=== PATIENT | female | born 1935 | race Caucasian/White ===

== ENCOUNTER 2017-07-03 14:35 | Emergency (ER) | payer OTHER, BC ==
[~2017-07-03] VITALS: Ht 152.4 cm; Wt 66.2 kg
[2017-07-03 14:38] VITALS: BP_SYST 124
[2017-07-03 16:57] VITALS: BP_SYST 123
== END 2017-07-03 16:58 | disposition home or self-care (01) ==
LOC: SED 14:35
DX: R60.0 Localized edema (principal); Z90.49 Acquired absence of other specified parts of digestive tract; Z90.89 Acquired absence of other organs
CPT/HCPCS: 93971; 99284

== ENCOUNTER 2022-12-28 22:37 | Inpatient (IN) | payer BC ==
[~2022-12-28] VITALS: Ht 162.6 cm; Wt 68.0 kg
[2022-12-28 22:45] VITALS: BP_SYST 140
--- NOTE | 2022-12-28 22:49 | NUR ---
Patient to ER bed 03 to gown for evaluation. Side rails up. Report given to RITIKA CRUZ.
[2022-12-29] MEDS ORDERED: DIPHTH,PERTUSS(ACELL),TET VAC 0.5 ML VIAL (Tdap) I.M. ONE (01:00)
[2022-12-29] MEDS ORDERED: LIDOCAINE 1% 10 MG/ML, 20 ML MDV SUBCUT ONE (01:00)
[2022-12-29 02:52] LABS: BASOPHILS # (AUTO) 0.1 K/uL (0.0-0.2); BASOPHILS % (AUTO) 0.9 % (0.0-2.0); EOSINOPHILS # (AUTO) 0.1 K/uL (0.0-0.4); HEMATOCRIT 32.8 % (36-48); HEMOGLOBIN 11.2 g/dL (12.0-16.0); LYMPHOCYTES # (AUTO) 1.9 K/uL (1.0-5.5); LYMPHOCYTES % (AUTO) 32.5 % (20.5-51.5); MEAN CORPUSCULAR HEMOGLOBIN 36 pg (27-31); MEAN CORPUSCULAR HGB CONC 34 % (32-36); MEAN CORPUSCULAR VOLUME 105 fL (79.0-98.0); MONOCYTES # (AUTO) 0.6 K/uL (0.0-1.0); NEUTROPHILS # (AUTO) 3.3 K/uL (1.8-7.7); NEUTROPHILS % (AUTO) 54.6 % (40.0-70.0); PLATELET COUNT (AUTO) 205 K/uL (130-430); RED BLOOD CELL COUNT(AUTO) 3.11 MIL/uL (4.2-6.2); RED CELL DISTRIBUTION WIDTH 13.8 % (9.0-15.0)
[2022-12-29 02:58] LABS: ANION GAP 5 (5-15); CALCIUM 8.7 mg/dL (8.4-11.0); CHLORIDE 101 mmol/L (98-107); CREATININE 0.55 mg/dL (0.55-1.30); GLUCOSE 108 mg/dL (70-99); UREA NITROGEN, BLOOD 16 mg/dL (8-21)
--- NOTE | 2022-12-29 03:04 | NUR ---
Admit bed requested Patient will be admitted to care of Admitted to MS unit. Diagnosis Increased Fall, Knee Injury/Laceration Inpatient (Yes or No) yes Observation (Yes or No) no Orientation concerns or request close to nursing station (Yes or No) no Covid Status pending On vent or bipap no Isolation requirements no Needs a sitter no From Home (Yes or if No enter name of facility) no, [facility] Requires Dialysis (Yes or No) no Med Rec Completed (Yes of No) no meds
--- NOTE | 2022-12-29 03:15 | NUR ---
APPLIED BREATHABLE STERILE GAUZE WRAP TO RIGHT KNEE AND APPLIED R KNEE IMBOLIZER. APPLIED STERILE DRESSING TO LEFT KNEE WOUND.
--- NOTE | 2022-12-29 03:30 | NUR ---
REC REPORT FROM RITIKA CRUZ. PT RESTING IN BED COMFORTABLY. PT AWAKE AND ALERT, DAUGHTER AT BEDSIDE. EVEN AND UNLABORED RESP NOTED, NAD. SAFETY PRECAUTIONS IN PLACE AND CONNECTED TO MONITOR.
[2022-12-29] MEDS: NACL 0.9% 1,000 ML IV SCH ×2 (04:07→18:47)
--- NOTE | 2022-12-29 04:16 | NUR ---
DAUGHTER, CHAVA, WOULD LIKE TO BE CALLED AND UPDATED WHEN PATIENT IS MOVED TO FLOOR.
--- NOTE | 2022-12-29 07:11 | NUR ---
REPORT GIVEN TO RITIKA MITCHELL TO ASSUME CARE.
--- NOTE | 2022-12-29 07:34 | NUR ---
RECEIVED PT FROM RITIKA LEVY. ASSUMED CARE. PT IS AAOX4. ON R/A. NORMAL S1S2 NOTED. DENIES N/V/D/C. PT HAS RIGHT KNEE LACERATION CLOSED WITH SUTURES, COVERED WITH KERLIX AND TAPE, KNEE BRACE IN PLACE; LEFT KNEE SMALL LACERATION WITH CDI DRESSING IN PLACE. NO EDEMA NOTED. PT CAN TURN AND REPOSITION SELF WITH ASSIST. DENIES PAIN. SIDERAILS UP X2.
--- NOTE | 2022-12-29 09:06 | NUR ---
FAMILY RAI CALLED TO SPEAK WITH PT AND TO GET UPDATE. INFORMED PT IS ADMITTED AND STILL WAITING ROOM ASSIGNMENT. LEFT CALL BACK NUMBER [phone] FOR PORTABLE PHONE USE.
--- NOTE | 2022-12-29 09:57 | NUR ---
PT RECEIVING XRAY AT THIS TIME.
[2022-12-29] MEDS ORDERED: HYDROcodone/ACETAMIN 7.5-325 MG TAB PO PRN (10:00)
[2022-12-29] MEDS ORDERED: guaiFENesin/DEXTROMETHORPHAN 10 ML UDC PO PRN (10:00)
[2022-12-29] MEDS ORDERED: ONDANSETRON HCL 4 MG/2 ML VIAL IVP PRN (10:00)
[2022-12-29] MEDS ORDERED: ZOLPIDEM TARTRATE 5 MG TABLET PO PRN (10:00)
[2022-12-29] MEDS ORDERED: MORPHINE 2 MG/ML INJ. SYRINGE IVP PRN (10:00)
[2022-12-29] MEDS ORDERED: DOCUSATE SODIUM 100 MG/10 ML UDC PO PRN (10:00)
[2022-12-29 11:35] LABS: PROTHROMBIN TIME 10.5 SECS (9.5-12.5)
--- NOTE | 2022-12-29 11:43 | NUR ---
DR. CANALES AT BEDSIDE TO ASSESS PT.
[2022-12-29 11:50] LABS: THYROID STIMULATING HORMONE 5.47 uIu/mL (0.34-4.82)
--- NOTE | 2022-12-29 11:51 | NUR ---
DAUGHTER CHAVA SPOKE WITH PT, TOLD HER SHE WILL BRING CELLPHONE AND HEARING AID BATTERIES. CALL BACK NUMBER [phone]
--- NOTE | 2022-12-29 18:00 | NUR ---
Patient will be admitted to care of RITIKA ANGLIN. Admitted to TELEMETRY unit. to room Belongings list completed. Complete and up to date summary report printed. SBAR report to be given at bedside with opportunity for questions.
[2022-12-29 18:33] VITALS: BP_SYST 134
--- NOTE | 2022-12-29 18:49 | NUR ---
pt admitted @ 1805 from ER. vss. ivf infusing as ordered. pt is a&o x4. daughter at bedside. no c/o pain, on ra. fall precautions in place.
[2022-12-29 20:00] VITALS: BP_SYST 140
[2022-12-30 01:37] VITALS: BP_SYST 137
[2022-12-30] MEDS: NACL 0.9% 1,000 ML IV SCH ×2 (04:00→16:35)
[2022-12-30 07:12] LABS: BASOPHILS % (AUTO) 0.6 % (0.0-2.0); EOSINOPHILS % (AUTO) 0.8 % (0.0-4.0); HEMATOCRIT 33.8 % (36-48); HEMOGLOBIN 11.6 g/dL (12.0-16.0); LYMPHOCYTES # (AUTO) 1.1 K/uL (1.0-5.5); LYMPHOCYTES % (AUTO) 18.7 % (20.5-51.5); MEAN CORPUSCULAR HEMOGLOBIN 36 pg (27-31); MEAN CORPUSCULAR HGB CONC 34 % (32-36); MEAN CORPUSCULAR VOLUME 105 fL (79.0-98.0); MONOCYTES # (AUTO) 0.7 K/uL (0.0-1.0); MONOCYTES % (AUTO) 10.9 % (1.7-9.3); NEUTROPHILS # (AUTO) 4.2 K/uL (1.8-7.7); PLATELET COUNT (AUTO) 189 K/uL (130-430); RED BLOOD CELL COUNT(AUTO) 3.22 MIL/uL (4.2-6.2); RED CELL DISTRIBUTION WIDTH 13.8 % (9.0-15.0); WHITE BLOOD COUNT (AUTO) 6.1 K/uL (4.8-10.8)
[2022-12-30 07:55] LABS: ANION GAP 5 (5-15); CHLORIDE 101 mmol/L (98-107); CREATININE 0.63 mg/dL (0.55-1.30); GLUCOSE 111 mg/dL (70-99); UREA NITROGEN, BLOOD 11 mg/dL (8-21)
[2022-12-30 08:00] VITALS: BP_SYST 110
[2022-12-30] MEDS ORDERED: IPRATROPIUM/ALBUTEROL SULFATE 3 ML AMPUL.NEB (DUONEB) INH PRN (08:00)
[2022-12-30] MEDS ORDERED: AZITHROMYCIN 250 MG TABLET PO ONE (08:00)
[2022-12-30] MEDS: PANTOPRAZOLE SODIUM 40 MG TAB PO SCH (08:53)
[2022-12-30] MEDS ORDERED: POTASSIUM CHLORIDE 20 MEQ TAB.PRT.SR PO PRN (09:00)
[2022-12-30] MEDS: cefTRIAXone 1 GM in D5W 50 ML IV SCH (09:25)
--- NOTE | 2022-12-30 10:00 | NUR ---
orders to collect urine specimen via straight cath, patient is continent and refusing cath, provided fluids and will collect via clean catch when patient is able to void
[2022-12-30 10:34] VITALS: BP_SYST 137
--- NOTE | 2022-12-30 12:00 | NUR ---
prn colace administered, patient has not had bm x 3 days, abdomen soft
[2022-12-30 12:22] VITALS: BP_SYST 109
--- NOTE | 2022-12-30 13:00 | NUR ---
urine collected for ua and culture, taken to lab
[2022-12-30 15:37] LABS: BILIRUBIN,URINE NEGATIVE (NEGATIVE); BLOOD, URINE NEGATIVE (NEGATIVE); CLARITY/URINE CLEAR (CLEAR); COLOR,URINE YELLOW (YELLOW); GLUCOSE,URINE NEGATIVE (NEGATIVE); KETONES,URINE NEGATIVE (NEGATIVE); LEUKOCYTE ESTERASE ,URINE NEGATIVE (NEGATIVE); NITRITE, URINE NEGATIVE (NEGATIVE); PH,URINE 6.5 (5.0-8.0); PROTEIN URINE NEGATIVE (NEGATIVE)
[2022-12-30 18:12] VITALS: BP_SYST 110
--- NOTE | 2022-12-30 18:30 | NUR ---
patient c/o pain b legs, 02/17 daughter request patient not take norco at this time
[2022-12-30] MEDS: ACETAMINOPHEN 500 MG TABLET PO PRN (18:40)
--- NOTE | 2022-12-30 19:00 | NUR ---
received patient from nurse, alert and oriented, able to verbalize needs, no c/o pain or discomfort at this time Addendum: 12/30/22 at 1901 by Nii Roper RN RN opening note
[2022-12-30 20:00] VITALS: BP_SYST 113
[2022-12-31 00:10] VITALS: BP_SYST 110
[2022-12-31] MEDS: NACL 0.9% 1,000 ML IV SCH ×2 (06:03→21:00)
--- NOTE | 2022-12-31 06:42 | NUR ---
PATIENT IN BED RESTING, NO S/S OF PAIN OR DISTRESS NOTED, CONTINENT OF B&B DURING THIS SHIFT. PATIENT'S VITAL SIGNS HAVE BEEN STABLE AND NO PRN PAIN MEDICATIONS GIVEN DURING THIS SHIFT. PATIENT WITH PIV TO R FA 24G PLACED ON 12.30.22. PATIENT LACERATION TO RIGHT KNEE S/P FALL WITH DRSG DCI AND BRACE ON AT THIS TIME.
[2022-12-31 07:45] VITALS: BP_SYST 123
[2022-12-31 07:53] LABS: BASOPHILS % (AUTO) 1.2 % (0.0-2.0); EOSINOPHILS # (AUTO) 0.1 K/uL (0.0-0.4); EOSINOPHILS % (AUTO) 2.2 % (0.0-4.0); HEMATOCRIT 30.2 % (36-48); HEMOGLOBIN 10.6 g/dL (12.0-16.0); LYMPHOCYTES # (AUTO) 1.4 K/uL (1.0-5.5); LYMPHOCYTES % (AUTO) 33.2 % (20.5-51.5); MEAN CORPUSCULAR HEMOGLOBIN 37 pg (27-31); MEAN CORPUSCULAR HGB CONC 35 % (32-36); MEAN CORPUSCULAR VOLUME 105 fL (79.0-98.0); MONOCYTES # (AUTO) 0.5 K/uL (0.0-1.0); MONOCYTES % (AUTO) 13.2 % (1.7-9.3); NEUTROPHILS # (AUTO) 2.1 K/uL (1.8-7.7); PLATELET COUNT (AUTO) 177 K/uL (130-430); RED BLOOD CELL COUNT(AUTO) 2.89 MIL/uL (4.2-6.2); RED CELL DISTRIBUTION WIDTH 13.7 % (9.0-15.0); WHITE BLOOD COUNT (AUTO) 4.1 K/uL (4.8-10.8)
[2022-12-31 08:25] LABS: ANION GAP 6 (5-15); CALCIUM 7.9 mg/dL (8.4-11.0); CHLORIDE 102 mmol/L (98-107); GLUCOSE 97 mg/dL (70-99); UREA NITROGEN, BLOOD 18 mg/dL (8-21)
[2022-12-31] MEDS: PANTOPRAZOLE SODIUM 40 MG TAB PO SCH (08:45)
[2022-12-31] MEDS: AZITHROMYCIN 250 MG TABLET PO SCH (08:45)
[2022-12-31] MEDS: cefTRIAXone 1 GM in D5W 50 ML IV SCH (08:45)
--- NOTE | 2022-12-31 08:57 | NUR ---
CM discharge order for SNF, IV abx and PT noted. referral packet faxed to [facility] F# [phone]. will follow up for bed availability.
[2022-12-31 09:31] LABS: NEUTROPHILS % (AUTO) 50.2 % (40.0-70.0)
--- NOTE | 2022-12-31 10:01 | NUR ---
CM order for DCP to SNF noted. patient is agreeable to [facility]; however when family called to notify of DCP, daughter Radha refused for her mother to be discharged to [facility]. Daughter is concerned that the patient is not ready to be discharged as she still has PNA. Daughter Radha has been trying to get an update from patient MD and states that so far the doctor has not called her. Will call patient listed insurance to find contracted facilities.
--- NOTE | 2022-12-31 10:02 | NUR ---
PHYSICAL THERAPY CO-SIGN The Physical Therapy Progress Notes documented by Drafter Tool Design have been reviewed. Reviewed/Co-Signed by: Dakotah Garcia Documentation Done by:MILAD RODRIGUEZ Addendum: 12/31/22 at 1002 by Dakotah Garcia PT Amended: Links added.
[2022-12-31 11:54] VITALS: BP_SYST 118
--- NOTE | 2022-12-31 12:30 | NUR ---
referral packet faxed to [facility] [phone]; local area near daughter. CM to follow up
--- NOTE | 2022-12-31 12:54 | NUR ---
CM follow up with referral packet. sales operations coordinator not in today. will follow up in am. Will send out referral packet to more facitlities.
--- NOTE | 2022-12-31 13:06 | NUR ---
faxed referral packet to [facility] f# [phone] and [facility] f#[phone]. will follow up
--- NOTE | 2022-12-31 14:09 | NUR ---
follow up with [facility] [phone]; DON to review packet and will call if they can accept patient. all questions addressed.
--- NOTE | 2022-12-31 14:24 | NUR ---
follow up with [facility] [phone]; [facility] verifying insurance; will call back if they can accept. Refaxed referral packet to [facility]# [phone]
--- NOTE | 2022-12-31 15:33 | NUR ---
spoke with Jewels at [facility]. Jewels provided pt insurance info for and Main #.Faxed clinicals to dept [place] [facility] [place] supplemental policy F# . will follow up for auth for SNF and transport.
--- NOTE | 2022-12-31 15:51 | NUR ---
followed up with [facility] [phone]. Financial business office at [facility] is having a hard time running pt insurance. This CM gave them pt Medicare Advantage policy # for [facility] Supplemental policy. #[id number]. [facility] to try again. will call back if they can accept.
--- NOTE | 2022-12-31 17:24 | NUR ---
patient had an uneventful day, tolerated meds and diet well. Discharge order placed for SNF. Patient awaits authorizations for [facility], see CM notes. Will continue to monitor closely.
[2022-12-31 17:32] VITALS: BP_SYST 120
--- NOTE | 2022-12-31 18:00 | NUR ---
call placed to Dr Penn to make aware of pending authorization SNF placement, awaiting response.
[2022-12-31 20:00] VITALS: BP_SYST 120
[2023-01-01] MEDS: NACL 0.9% 1,000 ML IV SCH ×2 (04:21→17:52)
[2023-01-01 04:35] VITALS: BP_SYST 134
[2023-01-01 06:30] LABS: BASOPHILS % (AUTO) 0.7 % (0.0-2.0); EOSINOPHILS # (AUTO) 0.1 K/uL (0.0-0.4); EOSINOPHILS % (AUTO) 1.3 % (0.0-4.0); HEMATOCRIT 33.6 % (36-48); HEMOGLOBIN 11.6 g/dL (12.0-16.0); LYMPHOCYTES # (AUTO) 1.2 K/uL (1.0-5.5); LYMPHOCYTES % (AUTO) 21.8 % (20.5-51.5); MEAN CORPUSCULAR HEMOGLOBIN 36 pg (27-31); MEAN CORPUSCULAR HGB CONC 35 % (32-36); MEAN CORPUSCULAR VOLUME 105 fL (79.0-98.0); MONOCYTES # (AUTO) 0.7 K/uL (0.0-1.0); MONOCYTES % (AUTO) 11.5 % (1.7-9.3); NEUTROPHILS # (AUTO) 3.7 K/uL (1.8-7.7); NEUTROPHILS % (AUTO) 64.7 % (40.0-70.0); PLATELET COUNT (AUTO) 173 K/uL (130-430); RED BLOOD CELL COUNT(AUTO) 3.19 MIL/uL (4.2-6.2); RED CELL DISTRIBUTION WIDTH 13.3 % (9.0-15.0); WHITE BLOOD COUNT (AUTO) 5.7 K/uL (4.8-10.8)
[2023-01-01 07:22] LABS: ANION GAP 6 (5-15); CHLORIDE 101 mmol/L (98-107); CREATININE 0.56 mg/dL (0.55-1.30); GLUCOSE 116 mg/dL (70-99); UREA NITROGEN, BLOOD 11 mg/dL (8-21)
[2023-01-01 08:02] VITALS: BP_SYST 131
[2023-01-01] MEDS: PANTOPRAZOLE SODIUM 40 MG TAB PO SCH (09:06)
[2023-01-01] MEDS: AZITHROMYCIN 250 MG TABLET PO SCH (09:06)
[2023-01-01] MEDS: cefTRIAXone 1 GM in D5W 50 ML IV SCH (09:07)
[2023-01-01 13:13] VITALS: BP_SYST 99
--- NOTE | 2023-01-01 15:56 | NUR ---
PHYSICAL THERAPY CO-SIGN The Physical Therapy Progress Notes documented by Salary And Wage Administrator have been reviewed. Reviewed/Co-Signed by: Josef Banuelos Documentation Done by:MILAD RODRIGUEZ Addendum: 01/01/23 at 1557 by Josef Banuelos PT Amended: Links added.
[2023-01-01 16:20] VITALS: BP_SYST 131
--- NOTE | 2023-01-01 18:40 | NUR ---
PATIENT IN GOOD SPIRIT, NO C/O PAIN, NO APPARENT DISTRESS. PATIENT STILL AWAITS SNF PLACEMENT. SAFETY PRECAUTIONS MAINTAINED THIS SHIFT. PATIENT CONTINUES ON IVF FOR HYDRATION. NO COMPLAINTS VOICED. CONTINUE WITH PLAN OF CARE.
[2023-01-01 20:00] VITALS: BP_SYST 144
--- NOTE | 2023-01-01 21:45 | NUR ---
PATIENT DAUGHTER, CHAVA, CALLED VOICED CONCERNS ABOUT PATIENT C/O PAIN TO HER RIGHT GREAT TOE. DAUGHTER IS CONCERNED THAT PATIENT COULD HAVE A BLOOD CLOT IN HER RIGHT LEG. PATIENT DAUGHTER, CHAVA, ALSO STATED THAT HER OTHER SISTER WAS REQUESTING THAT PATIENT BE GIVEN SOME TYPE OF ANTI-INFLAMMORTY PRIOR TO PHYSICAL THERAPY.
[2023-01-02] VITALS: BP_SYST 148
[2023-01-02] MEDS: NACL 0.9% 1,000 ML IV SCH ×2 (06:10→18:48)
[2023-01-02 06:50] LABS: EOSINOPHILS % (AUTO) 2.5 % (0.0-4.0); HEMATOCRIT 34.3 % (36-48); LYMPHOCYTES # (AUTO) 1.2 K/uL (1.0-5.5); LYMPHOCYTES % (AUTO) 29.9 % (20.5-51.5); MEAN CORPUSCULAR HEMOGLOBIN 37 pg (27-31); MEAN CORPUSCULAR HGB CONC 35 % (32-36); MEAN CORPUSCULAR VOLUME 105 fL (79.0-98.0); MONOCYTES # (AUTO) 0.5 K/uL (0.0-1.0); MONOCYTES % (AUTO) 12.8 % (1.7-9.3); PLATELET COUNT (AUTO) 183 K/uL (130-430); RED BLOOD CELL COUNT(AUTO) 3.27 MIL/uL (4.2-6.2); RED CELL DISTRIBUTION WIDTH 13.4 % (9.0-15.0); WHITE BLOOD COUNT (AUTO) 4.1 K/uL (4.8-10.8)
[2023-01-02 07:42] LABS: ANION GAP 7 (5-15); CALCIUM 8.2 mg/dL (8.4-11.0); CHLORIDE 102 mmol/L (98-107); CREATININE 0.63 mg/dL (0.55-1.30); GLUCOSE 96 mg/dL (70-99); UREA NITROGEN, BLOOD 10 mg/dL (8-21)
[2023-01-02 07:45] LABS: BASOPHILS % (AUTO) 0.3 % (0.0-2.0); NEUTROPHILS % (AUTO) 54.5 % (40.0-70.0)
[2023-01-02 07:46] LABS: EOSINOPHILS # (AUTO) 0.1 K/uL (0.0-0.4)
[2023-01-02 07:47] LABS: NEUTROPHILS # (AUTO) 2.3 K/uL (1.8-7.7)
[2023-01-02 08:22] VITALS: BP_SYST 129
[2023-01-02] MEDS: PANTOPRAZOLE SODIUM 40 MG TAB PO SCH (08:57)
[2023-01-02] MEDS: DOCUSATE SODIUM 100 MG CAPSULE PO PRN (08:57)
[2023-01-02] MEDS: AZITHROMYCIN 250 MG TABLET PO SCH (08:57)
[2023-01-02] MEDS: cefTRIAXone 1 GM in D5W 50 ML IV SCH (08:57)
[2023-01-02 10:52] VITALS: BP_SYST 126
[2023-01-02 10:55] VITALS: BP_SYST 126
--- NOTE | 2023-01-02 13:57 | NUR ---
faxed referral packet to [facility] per pt daughter Radha request. Followed up with a phone call ; left VM w/ this CM call back #for event coordinator. Will follow up
--- NOTE | 2023-01-02 14:50 | NUR ---
Natacha at [facility] called back and said that she had not received pt referral. fax # and direct line#s not correct. Natacha CM # [phone]. Her direct fax # [phone]. Number to nurses station to call report [phone]. numbers updated on this facility list. Natacha to call back after she receives packet. will follow up
--- NOTE | 2023-01-02 15:07 | NUR ---
RN MEDICALLY CLEARED PATIENT FOR PT, HOWEVER PATIENT REFUSED D/T PATIENT FEELING TIRED AND WANTED TO NAP.
[2023-01-02 15:42] VITALS: BP_SYST 113
--- NOTE | 2023-01-02 20:00 | NUR ---
REPORT RECEIVED FROM OUTGOING NURSE
[2023-01-02 20:42] VITALS: BP_SYST 135
--- NOTE | 2023-01-03 00:12 | NUR ---
pt resting in bed, no distress noted
[2023-01-03 00:42] VITALS: BP_SYST 123; BP_SYST 129
[2023-01-03 07:07] LABS: BASOPHILS % (AUTO) 0.9 % (0.0-2.0); EOSINOPHILS # (AUTO) 0.1 K/uL (0.0-0.4); EOSINOPHILS % (AUTO) 2.3 % (0.0-4.0); HEMATOCRIT 33.6 % (36-48); HEMOGLOBIN 11.7 g/dL (12.0-16.0); LYMPHOCYTES # (AUTO) 1.1 K/uL (1.0-5.5); LYMPHOCYTES % (AUTO) 21.4 % (20.5-51.5); MEAN CORPUSCULAR HEMOGLOBIN 36 pg (27-31); MEAN CORPUSCULAR HGB CONC 35 % (32-36); MEAN CORPUSCULAR VOLUME 104 fL (79.0-98.0); MONOCYTES # (AUTO) 0.5 K/uL (0.0-1.0); MONOCYTES % (AUTO) 10.6 % (1.7-9.3); NEUTROPHILS # (AUTO) 3.2 K/uL (1.8-7.7); NEUTROPHILS % (AUTO) 64.8 % (40.0-70.0); PLATELET COUNT (AUTO) 183 K/uL (130-430); RED BLOOD CELL COUNT(AUTO) 3.22 MIL/uL (4.2-6.2); RED CELL DISTRIBUTION WIDTH 13.7 % (9.0-15.0); WHITE BLOOD COUNT (AUTO) 4.9 K/uL (4.8-10.8)
[2023-01-03 07:23] LABS: ANION GAP 9 (5-15); CALCIUM 8.2 mg/dL (8.4-11.0); CHLORIDE 101 mmol/L (98-107); CREATININE 0.58 mg/dL (0.55-1.30); GLUCOSE 103 mg/dL (70-99); UREA NITROGEN, BLOOD 11 mg/dL (8-21)
[2023-01-03 08:02] VITALS: BP_SYST 129
[2023-01-03] MEDS ORDERED: DOCUSATE SODIUM 100 MG CAPSULE PO PRN (08:15)
[2023-01-03] MEDS ORDERED: POTASSIUM CHLORIDE 20 MEQ TAB.PRT.SR PO PRN (08:15)
[2023-01-03] MEDS ORDERED: ACETAMINOPHEN 325 MG TABLET PO PRN (08:15)
[2023-01-03] MEDS ORDERED: LORazepam 2 MG/ML VIAL IVP PRN (08:15)
[2023-01-03] MEDS ORDERED: ZOLPIDEM TARTRATE 5 MG TABLET PO PRN (08:15)
[2023-01-03] MEDS ORDERED: MUPIROCIN 2% TOPICAL OINTMENT 22 GM NS PRN (08:15)
[2023-01-03] MEDS ORDERED: MAGNESIUM SULFATE 50 ML IV PRN (08:15)
[2023-01-03] MEDS: PANTOPRAZOLE SODIUM 40 MG TAB PO SCH (08:42)
[2023-01-03] MEDS: AZITHROMYCIN 250 MG TABLET PO SCH (08:42)
[2023-01-03] MEDS: NACL 0.9% 1,000 ML IV SCH ×2 (08:43→21:56)
[2023-01-03] MEDS: cefTRIAXone 1 GM in D5W 50 ML IV SCH (08:43)
[2023-01-03 12:01] VITALS: BP_SYST 112
--- NOTE | 2023-01-03 12:08 | NUR ---
PT notes faxed to Samuel at [facility] F# [phone] . [employer]/ [employer] called [phone]. Patient only insurance that is active is her [place] [employer] Medicare Advantage [employer] Medicare Preferred PPO. ID # [id number]. Samuel at [facility] and Jewels at [facility] updated.
[2023-01-03] MEDS: ENOXAPARIN SODIUM 30 MG/0.3 ML SYRINGE SUBCUT SCH (12:23)
--- NOTE | 2023-01-03 14:43 | NUR ---
Fax # for [employer] authorization sent to Samuel at [facility]. Samuel states they will attempt to get authorization.
--- NOTE | 2023-01-03 15:55 | NUR ---
PHYSICAL THERAPY CO-SIGN The Physical Therapy Progress Notes documented by Linotypist have been reviewed. Reviewed/Co-Signed by: Dakotah Garcia Documentation Done by:MILAD RODRIGUEZ Addendum: 01/03/23 at 1555 by Dakotah Garcia PT Amended: Links added.
--- NOTE | 2023-01-03 16:08 | NUR ---
Urine culture results faxed to Samuel at [facility] f# [phone]
[2023-01-03 16:52] VITALS: BP_SYST 130
[2023-01-03 21:50] VITALS: BP_SYST 110
[2023-01-03 21:57] VITALS: BP_SYST 143
--- NOTE | 2023-01-04 03:40 | NUR ---
pt resting in bed, no acute distress noted. good urinary outputs x 3
--- NOTE | 2023-01-04 07:43 | NUR ---
no acute distress overnight. endorsed care to incoming RN
[2023-01-04 08:08] VITALS: BP_SYST 107
[2023-01-04] MEDS: AZITHROMYCIN 250 MG TABLET PO SCH (09:04)
[2023-01-04] MEDS: ENOXAPARIN SODIUM 30 MG/0.3 ML SYRINGE SUBCUT SCH (09:04)
[2023-01-04] MEDS: DOCUSATE SODIUM 100 MG CAPSULE PO PRN (09:04)
[2023-01-04] MEDS: PANTOPRAZOLE SODIUM 40 MG TAB PO SCH (09:04)
[2023-01-04] MEDS: cefTRIAXone 1 GM in D5W 50 ML IV SCH (09:05)
[2023-01-04] MEDS: NACL 0.9% 1,000 ML IV SCH ×2 (09:05→21:30)
[2023-01-04 12:00] VITALS: BP_SYST 110
[2023-01-04 16:00] VITALS: BP_SYST 108
--- NOTE | 2023-01-04 19:51 | NUR ---
ASSUMED CARE OF PT, NO ACUTE DISTRESS NOTED
[2023-01-04 20:58] VITALS: BP_SYST 128
[2023-01-05 02:46] VITALS: BP_SYST 129
--- NOTE | 2023-01-05 07:08 | NUR ---
daughter concerned for STITCHES to rt [place], requests for md to order removal of sticthe prior to pt discharge.
[2023-01-05 08:59] VITALS: BP_SYST 128
[2023-01-05] MEDS: PANTOPRAZOLE SODIUM 40 MG TAB PO SCH (09:32)
[2023-01-05] MEDS: cefTRIAXone 1 GM in D5W 50 ML IV SCH (09:33)
[2023-01-05] MEDS: ENOXAPARIN SODIUM 30 MG/0.3 ML SYRINGE SUBCUT SCH (09:33)
[2023-01-05 12:44] VITALS: BP_SYST 127
[2023-01-05 16:00] VITALS: BP_SYST 129
--- NOTE | 2023-01-05 18:48 | NUR ---
PATIENT RESTING QUIETLY IN BED. NO APPARENT DISTRESS NOTED. STILL AWAITS PLACEMENT TO SNF. DAUGHTER VISITED TODAY EXPRESSING HER CONCERNS ABOUT HER MOTHER STITCHES, WANTING TO KNOW WHEN THEY WILL BE REMOVED. REASSURED HER THAT THEY WILL BE REMOVED AT THE APPROPRIATE TIME. SAFETY PRECAUTIONS MAINTAINED, CALL LIGHT WITH IN REACH. CONTINUE WITH POC.
[2023-01-05 19:00] VITALS: BP_SYST 140
--- NOTE | 2023-01-05 19:15 | NUR ---
change of shift.pt.presents quiescent affect;calm,resting.pt.presents iv access intact;patent.general status stable. respiratory status stable unlabored@room air.no c/o pain,nausea.call light/telephone w/in access of the pt.
[2023-01-05 20:00] VITALS: BP_SYST 140
--- NOTE | 2023-01-05 20:00 | NUR ---
pt.assessed.v/s assessed values wnl.no c/o pain,nausea.pt.apprised that snacks/beverages are available w/in the shift. no requests posited@this hour.pt.assessed for cleanliness pt.repositioned.call light/telephone placed w/in access of the pt.
--- NOTE | 2023-01-05 22:00 | NUR ---
pt.assessed.pt.quiescent.per flacc pain mgx pt.absent facial grimaces/body posturing.pt.assessed for cleanliness pt.repositioned.call light/telephone placed w/in access of the pt.
[2023-01-05] MEDS: NACL 0.9% 1,000 ML IV SCH (22:30)
--- NOTE | 2023-01-06 | NUR ---
pt.assessed.v/s assessed values wnl.pt.requested assistance w bryanna chester;assembly manager assisted pt.no c/o pain,nausea. no requests posited@this hour.pt.repositioned.call light/telephone placed w/in access of the pt.
--- NOTE | 2023-01-06 02:00 | NUR ---
pt assESSED.pt.quiescent.per flacc pain mgx pt.absent facial grimaces/BODY PoSTUriNG.PT.ASSessed for cleanliness PT.REpositioned.call light/telephone placed w/in access of the pt.
--- NOTE | 2023-01-06 04:00 | NUR ---
pt.assessed.pt.quiescent.per flacc pain mgx pt.absent facial grimaces/body posturing.o2-sat%=96%.pt.assessed for cleanliness pt.repositioned.call light/telephone placed w/in access of the pt.
[2023-01-06 04:17] VITALS: BP_SYST 135
--- NOTE | 2023-01-06 06:20 | NUR ---
pt.assessed.pt.quiescent.per flacc pain mgx pt.absent facial grimaces/body posturing.pt.assessed for cleanliness pt.repositioned.call light/telephone placed w/in access of the pt.
[2023-01-06 07:27] VITALS: BP_SYST 131
[2023-01-06] MEDS: ENOXAPARIN SODIUM 30 MG/0.3 ML SYRINGE SUBCUT SCH (08:48)
[2023-01-06] MEDS: PANTOPRAZOLE SODIUM 40 MG TAB PO SCH (08:48)
[2023-01-06] MEDS: NACL 0.9% 1,000 ML IV SCH (11:00)
--- NOTE | 2023-01-06 11:08 | NUR ---
Followed up with Mabel at [facility] for updates on insurance authorization. Mabel to call admissions and follow up. PT reports that patient last ambulated /FWW 20ft. Sit to stand exercises done; but patient has poor standing balance. Patient with h/o multiple falls prior to admission. Mabel at [facility] to call this CM with updates; return phone # provided.
[2023-01-06 12:00] VITALS: BP_SYST 133
[2023-01-06] MEDS ORDERED: POTASSIUM CHLORIDE 20 MEQ TAB.PRT.SR PO ONE (12:00)
[2023-01-06] MEDS: ACETAMINOPHEN 500 MG TABLET PO PRN (12:25)
[2023-01-06 13:16] LABS: ANION GAP 12 (5-15); CALCIUM 8.9 mg/dL (8.4-11.0); CHLORIDE 96 mmol/L (98-107); CREATININE 0.72 mg/dL (0.55-1.30); GLUCOSE 127 mg/dL (70-99); UREA NITROGEN, BLOOD 19 mg/dL (8-21)
--- NOTE | 2023-01-06 14:07 | NUR ---
phone call follow up for Mabel at [facility] [phone]. Mabel unavailable. left message with staff for her to return this CM call regarding authorization.
--- NOTE | 2023-01-06 14:47 | NUR ---
spoke with daughter Radha [phone] regarding updates and authorization disposition. [facility] still unable to obtain auth. Radha made aware of MD order for CM to DC home with HH for PT if insurance does not auth for SNF. Radha stated that she spoke with [facility] and that they told her they will not take her back unless she has had rehab/ SNF services as she is a high fall risk. Option of discharging patient back to [facility] with HH and caregiver discussed. Daughter states that the family cannot afford caregiver services and reitierates that [facility] told her that it is their rule that the resident cannot return back unless she has had SNF or rehab services. Daughter received a recommendation to send her mother's information to [facility]. Will call [facility], follow up with [facility] and fax referral to [facility]. Daughter made aware that the issue is not the facility but the insurance. Daughter still insists on this CM to send [facility] a referral.
--- NOTE | 2023-01-06 14:59 | NUR ---
unable to reach Elsie at [facility] [phone]. [facility] RN to call back. will fax referral to [facility] per daughter choice.
--- NOTE | 2023-01-06 15:15 | NUR ---
[facility] referral packet faxed to [facility] [phone] per patient daughter request. will follow up.
--- NOTE | 2023-01-06 16:10 | NUR ---
PHYSICAL THERAPY CO-SIGN The Physical Therapy Progress Notes documented by Pharmacy General Manager have been reviewed. Reviewed/Co-Signed by: Dakotah Garcia Documentation Done by:MILAD RODRIGUEZ Addendum: 01/06/23 at 1610 by Dakotah Garcia PT Amended: Links added.
[2023-01-06 16:41] VITALS: BP_SYST 132
--- NOTE | 2023-01-06 18:21 | NUR ---
PATIENT RESTING QUIETLY, REQUESTED FOR PAIN MED ONCE TODAY AFTER SEEN BY PT. PT STILL AWAITS SNF PLACEMENT. SAFETY MEASURES MAINTAINED THIS SHIFT. CONTINUE WITH POC.
[2023-01-06 19:00] VITALS: BP_SYST 132
[2023-01-07 00:07] VITALS: BP_SYST 129
[2023-01-07] MEDS: NACL 0.9% 1,000 ML IV SCH ×2 (00:46→12:00)
[2023-01-07 04:00] VITALS: BP_SYST 129
[2023-01-07 08:15] VITALS: BP_SYST 127
--- NOTE | 2023-01-07 09:08 | NUR ---
updated clinicals faxed to Samuel at [facility] f# [phone]. Samuel will work with Mabel in the business office to try to get auth today.
[2023-01-07] MEDS: ENOXAPARIN SODIUM 30 MG/0.3 ML SYRINGE SUBCUT SCH (09:47)
[2023-01-07] MEDS: PANTOPRAZOLE SODIUM 40 MG TAB PO SCH (09:47)
[2023-01-07 11:10] VITALS: BP_SYST 128
--- NOTE | 2023-01-07 11:43 | NUR ---
Spoke with Samuel at [facility] [phone]. Samuel states they can accept the patient . Samuel advised this CM that the hospital has to initiate authorization. This CM faxed request for authorization to f# [phone]. This CM called pt insurance [employer] [phone] and spoke to Karen to confirm fax # and see if they received fax. Karen checked member ID # and stated that [facility] had been given auth that started 01/01 and ended on 01/04/23. Karen informed that this CM had been in touch with [facility]
--- NOTE | 2023-01-07 11:49 | NUR ---
jeremiah with Samuel at [facility] [phone]. Samuel states they can accept the patient . Samuel advised this CM that the hospital has to initiate authorization. This CM faxed request for authorization to f# [phone]. This CM called pt insurance [employer] [phone] and spoke to Karen to confirm fax # and see if they received fax. Karen checked member ID # and stated that [facility] had been given auth that started 01/01 and ended on 01/04/23. Karen informed that this CM had been in touch with Jewels at [facility] on 01/03/23 and stated that they were not able to get through to the patient insurance. [facility] did not mention that they had initiated auth or recieved approval for the facility. will call Karen at 2pm to check on auth status.
--- NOTE | 2023-01-07 12:02 | NUR ---
Spoke with Jewels at [facility] to discuss facility having initiated auth for SNF. [facility] denies anyone their initiating auth. [facility] does however state that they would be willing to accept the patient pending auth.
--- NOTE | 2023-01-07 12:21 | NUR ---
Followed up with [facility] [phone]; spoke with Shila who stated that they cannot accept the patient; they are full. Attempt to call daughter to let her know that her facility of choice cannot accept. left VM with choices of [facility] whom will accept. Spoke with Kiley from [facility] dept [phone] who is working on authorization for [facility] [place]. Kiley states that CM dept will receive a fax with authorization ; pending.
--- NOTE | 2023-01-07 14:30 | NUR ---
LATE ENTRY DUE TO CARE. 0800 PT STABLE . DENIES ANY PAIN OR THOER DISCOMFORT. NOT IN ACUTE DISTRESS. 1000- DUE MEDS GIVEN ORDERED. 1130- REPORT GIVEN TO RITIKA ADLER
--- NOTE | 2023-01-07 14:40 | NUR ---
spoke with pt daughter Radha ; daughter spoke with Elsie at [facility] regarding any criteria that the facility would take the patient back if she didnt go to a SNF or rehab facility first. Radha was told that "[facility] would take her mother back without going to a SNF first but it would be at a higher level; level one" Pt was at a level zero; independent. Level one would mean a daytime caregiver to help with ADLs and escort with ambulation for fall prevention. It was quoted to Radha that this would cost $450/ month more and would be out of pocket expense. Radha told [facility] rep that the family cannot afford the extra cost. Radha is agreeable to [facility]. Pending auth for [facility] and [facility]. Kelley from [facility] called back and said they may consider accepting this patient pending insurance. Pat given patient Medicare Advantage Plan ID# ; she will try to see if the patient has any medicare benefits. Kelley will call dept back with decision.
--- NOTE | 2023-01-07 14:46 | NUR ---
Called patient nurse to see if she has worked with PT; no notes today. nurse to call CM with updates. Pt daughter Radha is concerned that the patient still has sutures to her knee in . Will reach out to patient nurse to address this matter with the attending MD.
[2023-01-07 15:25] VITALS: BP_SYST 112
--- NOTE | 2023-01-07 15:37 | NUR ---
PHYSICAL THERAPY CO-SIGN The Physical Therapy Progress Notes documented by Step Down Specialist have been reviewed. Reviewed/Co-Signed by: Dakotah Garcia Documentation Done by:MILAD RODRIGUEZ Addendum: 01/07/23 at 1537 by Dakotah Garcia PT Amended: Links added.
[2023-01-07] MEDS: ACETAMINOPHEN 500 MG TABLET PO PRN (21:52)
[2023-01-08] VITALS (7 sets, daily range): BP systolic 116–141
[2023-01-08] MEDS: NACL 0.9% 1,000 ML IV SCH ×2 (02:30→13:00)
--- NOTE | 2023-01-08 07:26 | NUR ---
CLOSING NOTES PT WAS ON AND OFF SLEEPING.BED IN LOW POSITION WITH BREAK SET. PT APPEAR TO BE RESTING
--- NOTE | 2023-01-08 08:09 | NUR ---
Dietitian Recommendations * Continue regular diet * Adhere to pt food preferences * Snacks between meals; JIMMY entered in computrition GS, MPH, RD Please refer to RD Assessment for further details. Thanks! Addendum: 01/08/23 at [address] Amended: Links added.
--- NOTE | 2023-01-08 08:19 | NUR ---
OPENING NOTES: RECEIVED BEDSIDE SBAR FROM PM SHIFT NURSE, PATIENT IS STABLE NO S/S OF ANY DISTRESS AT THIS TIME, PATIENT IS RESTING IN BED WITH EYES OPENED. ASSISTED LABORER HOISTING IN PUTTING PT ON BEDPAN. BREATHING IS EVEN AND UNLABORED ON RA. ALL NEEDS MET AT THIS TIME, SAFETY CHECKS MADE AND CALL LIGHT WITHIN REACH.
--- NOTE | 2023-01-08 08:35 | NUR ---
OIL EXPELLER: MOLLY TERRELL CASE MGT INFORMED ME THAT SHE IT ATTEMPTING TO GET PT TRANSFERRED TO [facility] AND IS WAITING FOR AUTHORIZATION.
--- NOTE | 2023-01-08 08:47 | NUR ---
Zofia at [employer] [facility] called and requested more info. Faxed updated clinicals to f# [phone]. will follow up. Kelley at [facility] called back and could not get member information. Pat called patient son to call pt member services to update her information. awaiting authorization for [facility].
[2023-01-08] MEDS: PANTOPRAZOLE SODIUM 40 MG TAB PO SCH (10:11)
[2023-01-08] MEDS: ENOXAPARIN SODIUM 30 MG/0.3 ML SYRINGE SUBCUT SCH (10:11)
--- NOTE | 2023-01-08 13:49 | NUR ---
Followed up with Isabella at [facility] ( formerly [employer]) [phone]. Isabella states that they still have not received this mornings fax; they are backed up. Itemized list of needed clinicals discussed. They need 48 hours of nurse notes as well. CM to refax entire updated packet to F# [phone].
--- NOTE | 2023-01-08 16:00 | NUR ---
PHYSICAL THERAPY CO-SIGN The Physical Therapy Progress Notes documented by Dry Mixer have been reviewed. Reviewed/Co-Signed by: Dakotah Garcia Documentation Done by:MILAD RODRIGUEZ Addendum: 01/08/23 at 1600 by Dakotah Garcia PT Amended: Links added.
--- NOTE | 2023-01-08 16:20 | NUR ---
Daughter Radha updated on insurance auth status; still waiting for auth. will check back tomorrow morning.
--- NOTE | 2023-01-08 19:21 | NUR ---
CLOSING NOTES: PT IN BED WATCHING TV. BREATHING IS EVEN AND UNLABORED ON RA. NO S/S OF DISTRESS OR PAIN REPORTED. ALL NEEDS MET AT THIS TIME, SAFETY CHECKS MADE AND CALL LIGHT WITHIN REACH. WILL ENDORSE TO NIGHT NURSE.
[2023-01-09] VITALS: BP_SYST 123
[2023-01-09] MEDS: NACL 0.9% 1,000 ML IV SCH ×2 (02:53→13:16)
--- NOTE | 2023-01-09 06:19 | NUR ---
Closing notes pt in bed watching TV and occasionally sleeping on and off. No distress noted. Bed in low position with all safety precautions in place. pt is comfortably and appear to be resting.
[2023-01-09 08:00] VITALS: BP_SYST 135
--- NOTE | 2023-01-09 08:20 | NUR ---
follow up with patient insurance [employer] [facility] regarding auth. Cryptanalyst states that all clinical documents faxed yesterday were received and that auth is pending. Rep states a decision should be reached today.
--- NOTE | 2023-01-09 08:29 | NUR ---
OPENING NOTES: PT IN BED WITH EYES CLOSED. BREATHING EVEN AND UNLABORED ON RA. NO S/S OF DISTRESS OR PAIN REPORTED. ALL NEEDS MET AT THIS TIME, SAFETY CHECKS MADE AND CALL LIGHT WITHIN REACH.
--- NOTE | 2023-01-09 09:08 | NUR ---
Authorization approved and received for [facility]. Samuel at [facility] faxed auth# [id number] to fax# [phone]. Samuel to call back with a bed. CHIRAG to work on transportation now.
[2023-01-09] MEDS: PANTOPRAZOLE SODIUM 40 MG TAB PO SCH (09:24)
[2023-01-09] MEDS: ENOXAPARIN SODIUM 30 MG/0.3 ML SYRINGE SUBCUT SCH (09:25)
--- NOTE | 2023-01-09 09:47 | NUR ---
Patient RITIKA Dickson notified about pending discharge to [facility]. RITIKA Dickson to collect a STAT Rapid Covid test.. transportation with Medic[facility] placed on will call.
--- NOTE | 2023-01-09 11:31 | NUR ---
negative Covid results for rapid test today faxed to Samuel at [facility] F# [phone]. Samuel to call back with a bed. Notified patient daughter Radha about pending discharge.
[2023-01-09 12:04] VITALS: BP_SYST 131
--- NOTE | 2023-01-09 12:15 | NUR ---
Spoke with Samuel at [facility] regarding KAVON and to let his business employment specialist Mabel know that if they need an KAVON that they have to call the insurance and initiate it. Will follow up.
--- NOTE | 2023-01-09 13:07 | NUR ---
Samuel from [facility] called back stating that he cannot give the patient a bed because they are not contracted with [facility]. They would need a hard copy of an KAVON.
--- NOTE | 2023-01-09 14:22 | NUR ---
attempt to follow up with Mabel business practices officer at [facility] [phone] regarding initiation on KAVON with patient insurance. Mabel unavailable. left ms with staff for her to call this CM back. return phone # provided.
--- NOTE | 2023-01-09 14:37 | NUR ---
case mgt: Nadya informed me that the pt dc is delayed because the facility or business office of [facility] is not contracted with the pt's insurance so [facility] needs to do a letter of agreement with the pt's health insurance. pt will not be dc today due to insurance delay. 01/09/23.
[2023-01-09 16:00] VITALS: BP_SYST 130
--- NOTE | 2023-01-09 18:23 | NUR ---
CLOSING NOTES: PT IN BED EATING DINNER. NO S/S OF DISTRESS OR PAIN REPORTED. BREATHING IS EVEN AND UNLABORED ON RA. IV IS PATENT AND FLUIDS ARE RUNNING. ALL NEEDS MET AT THIS TIME, SAFETY CHECKS MADE AND CALL LIGHT WITHIN REACH. WILL ENDORSE TO NIGHT NURSE.
[2023-01-10] VITALS (7 sets, daily range): BP systolic 105–149
--- NOTE | 2023-01-10 07:52 | NUR ---
CLOSING NOTES PT RESTING WITH FALL PRECASTION IN PLACE
--- NOTE | 2023-01-10 08:05 | NUR ---
Spoke with [facility] member services [phone] to find a list of patient insurance contracted facilities. List was faxed to this CM. However; [facility] was on that list and the business systems developer stated that [facility] is not contracted with [employer] [employer] [facility]. Called Rylie at [facility] regarding a list of contracted facilities. Rylie states that [facility] initiated a request for a letter of approval yesterday and it was faxed to the facility. This CM requested for a copy of that letter of approval sent to [facility] for review. will follow up with [facility]
[2023-01-10] MEDS: PANTOPRAZOLE SODIUM 40 MG TAB PO SCH (09:43)
[2023-01-10] MEDS: ENOXAPARIN SODIUM 30 MG/0.3 ML SYRINGE SUBCUT SCH (09:43)
--- NOTE | 2023-01-10 11:39 | NUR ---
Follow up with Samuel at [facility] [phone]. Samuel contacted his church administrator to ask Mabel in business office to expedite the KAVON request for this patient. Will follow up
--- NOTE | 2023-01-10 12:00 | NUR ---
updated daughter Radha [phone] on insurance status; Letter of agreement between [facility] and [facility] still pending. Daughter encouraged to update her siblings as she has been the one managing patient needs and her brother Kirby is "essentially uninvolved" per Radha. Spoke with Radha about her sister Sheyla Garcia from [place] who called department wanting to know why patient is still here. explained to Radha how one spokesperson for the patient is the preferred policy for privacy purposes. Radha agreed to update her sister Sheyla about discharge disposition today.
--- NOTE | 2023-01-10 15:36 | NUR ---
PHYSICAL THERAPY CO-SIGN The Physical Therapy Progress Notes documented by Yoghurt Maker have been reviewed. Reviewed/Co-Signed by: Josef Banuelos Documentation Done by:MILAD RODRIGUEZ Addendum: 01/10/23 at 1536 by Josef Banuelos PT Amended: Links added.
--- NOTE | 2023-01-10 18:01 | NUR ---
Miss Felipe has been assessed as indicated. She has been noted to be both pleasant and cooperative. She continued to deny pain. She was eagerly looking forward to being DC today. However the authorization process has not been completed. She will not DC today. She is disappointed but compliant. She has worked with PT today and spoken with [facility] members via the telephone. She is resting quietly at this time
--- NOTE | 2023-01-10 19:30 | NUR ---
Handoff has been given to Trell
--- NOTE | 2023-01-10 20:00 | NUR ---
Report received from day shift RN for continuity of care. Patient in stable condition.
--- NOTE | 2023-01-10 20:08 | NUR ---
Report received from day shift RN for continuity of care. Patient stable. No distress noted.
[2023-01-10] MEDS: NACL 0.9% 1,000 ML IV SCH (21:17)
[2023-01-11 00:49] VITALS: BP_SYST 140
[2023-01-11] MEDS: NACL 0.9% 1,000 ML IV SCH ×3 (02:23→15:53)
[2023-01-11 04:00] VITALS: BP_SYST 136
--- NOTE | 2023-01-11 06:53 | NUR ---
Paged Dr. Simon regarding sodium levels.
--- NOTE | 2023-01-11 07:11 | NUR ---
Report given to day shift RN for continuity of care. Patient stable throughout the whole night. IV started on patient's left hand.
[2023-01-11] MEDS: ENOXAPARIN SODIUM 30 MG/0.3 ML SYRINGE SUBCUT SCH (09:55)
[2023-01-11] MEDS: PANTOPRAZOLE SODIUM 40 MG TAB PO SCH (09:55)
[2023-01-11 11:15] VITALS: BP_SYST 134
[2023-01-11 15:15] VITALS: BP_SYST 132
--- NOTE | 2023-01-11 19:10 | NUR ---
CHANGE OF SHIFT; endorsed by day shift, admitted due to a fall.and injured her rt. knee. call light within reach. bed alarm on.
[2023-01-11 20:00] VITALS: BP_SYST 129
--- NOTE | 2023-01-11 20:30 | NUR ---
NOTES: pt. awake, alert. IVF infusing via left arm. noted dried incision with stitches on rt. knee and dry scab on left knee. able to move all extremities. call light at bedside.
--- NOTE | 2023-01-11 22:00 | NUR ---
NOTES: pt. called and use bedpan to void. no medication due.
--- NOTE | 2023-01-12 00:30 | NUR ---
NOTES: made rounds and pt. sleeping quietly. no distress.
[2023-01-12 00:55] VITALS: BP_SYST 122
--- NOTE | 2023-01-12 02:00 | NUR ---
NOTES: condition unchanged. safety precautions observed. pt. room close to nurses station.
--- NOTE | 2023-01-12 04:15 | NUR ---
NOTES: made rounds. pt. remain sleeping comfortably.
--- NOTE | 2023-01-12 06:38 | NUR ---
CLOSING NOTES; pt. still sleeping. no complaints manifested. IVf infusing. for further care and assistance. call light within reach.
[2023-01-12] MEDS: NACL 0.9% 1,000 ML IV SCH ×2 (07:28→17:00)
[2023-01-12 08:39] VITALS: BP_SYST 132
[2023-01-12] MEDS: PANTOPRAZOLE SODIUM 40 MG TAB PO SCH (09:31)
[2023-01-12] MEDS: ENOXAPARIN SODIUM 30 MG/0.3 ML SYRINGE SUBCUT SCH (09:31)
--- NOTE | 2023-01-12 19:47 | NUR ---
CHANGE OF SHIFT: endorsed by day shift. 2 daughters here, Radha and Sheyla concerned about their mother stitches on the rt. knee that it has been there for 15 days and wants to know when will MD to remove it, they said " they been telling nurses and nothing been done", apparently Sheyla talked to Dr. Joseph yesterday and will make notes. will informed charge nurse Moe about this, will endorse tomorrow to day shift.
[2023-01-12 20:00] VITALS: BP_SYST 124
--- NOTE | 2023-01-12 20:00 | NUR ---
NOTES: IVF been off all day, pt. been eating and drinking, does not want it back. called exchange and left message to get an order to dc fluids.
--- NOTE | 2023-01-12 20:44 | NUR ---
NOTES: pt. pulled up in bed and repositioned. IV site on left ac. moves all extremities. pt. walked by family earlier with a walker. rt. knee incision dry with stitches , open to air and scab on left knee. on fall risk precautions. call light within reach.
[2023-01-13] VITALS (7 sets, daily range): BP systolic 114–134
--- NOTE | 2023-01-13 00:30 | NUR ---
NOTES: pt. pretty calm and sleeping. no apparent distress. bed alarm on. call light within reach.
--- NOTE | 2023-01-13 04:00 | NUR ---
NOTES: pt. been asleep. no distress.
[2023-01-13] MEDS: NACL 0.9% 1,000 ML IV SCH (05:30)
--- NOTE | 2023-01-13 06:30 | NUR ---
CLOSING NOTES; uneventful night. IV site patent. fall risk precautions observed. for further care and assistance. call light within reach.
--- NOTE | 2023-01-13 07:36 | NUR ---
NOTES: called [facility] exchange and left message about IVF to dc and stitches to remove per daughter's concerned.
[2023-01-13] MEDS: ENOXAPARIN SODIUM 30 MG/0.3 ML SYRINGE SUBCUT SCH (09:00)
[2023-01-13] MEDS: PANTOPRAZOLE SODIUM 40 MG TAB PO SCH (09:00)
--- NOTE | 2023-01-13 13:00 | NUR ---
Spoke with patient daughter Radha on the phone [phone] regarding pt discharge plan of care. Radha states she cannot take the patient home as she lives in a condo upstairs. Radha spoke with Jewels at [facility] and Samuel at [facility] for updates. This CM recieved notification that pt daughter Sheyla Garcia from [place] was in the lobby to speak with CM. This CM spoke with Sheyla and her concerns about her mother. Concerns verbalized were that " my mom was complaining of foot pain and nobody addressed it. I looked at her feet and there are necrotic spots on her toes. They ordered a wound consult. I was going to take her back home with me but now she has a new issue to be addressed." Sheyla was made aware that [facility] would take her mom back at a higher level of care Level 1 costing $450 and level 2 costing $ 900. Sheyla states that the family would be willing to pay the extra cost but she feels that her mom still needs SNF placement. Sheyla then asked for her mom's insurance member ID and the number to [facility]. This CM went to the office to get info for Sheyla and she followed me in to the office. This CM then offered a seat while she waited. Sheyla asked if there was authorization for [facility]. This CM pulled the paper and briefly showed her the auth. Sheyla tried to get a photo of the authorization, but this CM quickly placed it back into my work pile. Sheyla asked can I get a better picture of that authorization. This CM stated, " No, you were not supposed to take a photo of that paper as it is property of the hospital. Sheyla apologized and was given a post it note of her mothers insurance group name and ID. Sheyla left CM office to go check on her mother and try to speak with the MD.
--- NOTE | 2023-01-13 14:00 | NUR ---
Wound Evaluation: Late note for 01/13/2023 at 1400 secondary to patient care. Wound Consult ordered for Low Steven Score. Patient evaluated for a low Steven score, now a 17. Patient was awake, alert, oriented x 2, and received in a Irwin Bed with an IsoFlex SHANELL mattress. Patient is able to turn in bed. Patient's daughter said that the patient had fallen at her residence, and that there was redness on the toes from the fall. Skin assessment: 1. Right Distal Medial Great Toe: Area of dark discolored tissue, possibly a dry blister without drainage, no fluctuance or bogginess present. Surrounding tissue has blanchable redness. No odor, no drainage. No calor/warmth present. Mild edema present in foot and extremity. Site measures 0.9 cm x 1.1 cm. 2. Left Distal Medial Great Toe: Small area of blanchable redness. No odor, no drainage. No calor/warmth present. Recommend: Morning Glory involved area on Right Distal Medial Great Toe with Betadine. Allow Betadine to air dry. Cover both sites with foam dressing for protection. Perform site care daily, and as needed for dressing soiling or dislodgment. Elevate bilateral lower extremities and heels as tolerated. Keep bed covers off of toes. Also recommend: Encourage and assist patient as needed with repositioning every 2 hours with pillow support. Elevate, off-load and float bilateral lower extremities and heels with pillows. Offload pressure areas with pillows for pressure re-distribution. Perform skin care and monitor skin integrity Q shift. Use moisture barrier cream on moisture susceptible areas QID and PRN for soiling. Maintain patient on a low air-loss mattress. Will order orthopedic shoes to keep bilateral feet equal distance from floor to assist with safe ambulation.
--- NOTE | 2023-01-13 14:39 | NUR ---
Spoke with Melody at [facility] regarding KAVON. Melody states that [facility] told them that they dont do letters of agreement just authorization. Melody at [facility] states that they cannot accept the patient. Will update the family Addendum: 01/13/23 at 1444 by Nadya Snowden RN Samuel at [facility] informed director that they are still working on [facility] to give an KAVON.
--- NOTE | 2023-01-13 15:45 | NUR ---
PHYSICAL THERAPY CO-SIGN The Physical Therapy Progress Notes documented by Film Painter have been reviewed. Reviewed/Co-Signed by: Dakotah Garcia Documentation Done by:MILAD RODRIGUEZ Addendum: 01/13/23 at 1545 by Dakotah Garcia PT Amended: Links added.
--- NOTE | 2023-01-13 19:55 | NUR ---
RECEIVED PT LYING IN BED, NO DISTRESS NOTED, DENIES PAIN. AAOX4, O2 SAT 96% ON RA. LUNGS CLEAR, PALPABLE PULSES TO ALL EXTREMITIES. IV SITE TO LT AC SITE CDI. HEALING WOUND TO RT KNEE, SCAB TO LT KNEE.
[2023-01-14 00:37] VITALS: BP_SYST 106
[2023-01-14] MEDS: PANTOPRAZOLE SODIUM 40 MG TAB PO SCH (08:48)
[2023-01-14] MEDS: DOCUSATE SODIUM 100 MG CAPSULE PO PRN (08:48)
[2023-01-14] MEDS: ENOXAPARIN SODIUM 30 MG/0.3 ML SYRINGE SUBCUT SCH (08:49)
[2023-01-14 09:10] VITALS: BP_SYST 106
[2023-01-14 11:45] VITALS: BP_SYST 101
--- NOTE | 2023-01-14 14:35 | NUR ---
Request for DME Wheelchair for patient faxed to [facility] [phone].
--- NOTE | 2023-01-14 14:39 | NUR ---
Referral for HH/PT faxed to [facility] [phone]
--- NOTE | 2023-01-14 14:56 | NUR ---
Spoke with pt daughters Sheyla and Radha regarding discharge status. Patient is walking 75 ft with a FWW and no longer qualifies for a SNF placement for PT. Patient can go back to [facility] today. Family needs to work out level of care at this facility with the daughters. Both daughters agree. CM is requested to obtain a wheelchair for their mother because the distance between her room and the dining area is more than 75 ft. Referrals for HH/ PT faxed to [facility] F#[phone] and [facility] f#[phone]. will follow up. Spoke with Eunice at [facility] regarding pt impending discharge today. faxed patient PT notes, notes, covid status and discharge summary to #[phone]
--- NOTE | 2023-01-14 15:00 | NUR ---
f/u with [facility]. Patient does not qualify for WC. [facility] call back; only hospice.
--- NOTE | 2023-01-14 15:10 | NUR ---
PHYSICAL THERAPY CO-SIGN The Physical Therapy Progress Notes documented by Animal Nurse have been reviewed. Reviewed/Co-Signed by: Josef Banuelos Documentation Done by:MILAD RODRIGUEZ Addendum: 01/14/23 at 1510 by Josef Banuelos PT Amended: Links added.
[2023-01-14 15:50] VITALS: BP_SYST 101; BP_SYST 135
--- NOTE | 2023-01-14 16:00 | NUR ---
Spoke with Sagrario at [facility] regarding referral for HH/PT. Sagrario states that they cannot accept patient due to her insurance.
--- NOTE | 2023-01-14 17:15 | NUR ---
referral sent to [facility]# [phone]. will follow up in am
[2023-01-14 17:17] VITALS: BP_SYST 101
--- NOTE | 2023-01-14 18:00 | NUR ---
D/C Patient Patient and daughters given medication reconciliation form and D/C instructions. Exit Care provided. Patient, and her daughters verbalized understanding. MD discussed with patient the results and treatment provided. Ambulatory with steady gait for discharge to home. Patient in stable condition, ID band removed. IV catheter removed, intact and dressing applied, no active bleeding. Rx of given. Patient educated on pain management. All belongings sent with patient.
--- NOTE | 2023-01-15 08:30 | NUR ---
Follow up with [facility]. They are unable to take this patient as they do not have nurse coverage at this time for [facility].
--- NOTE | 2023-01-15 13:43 | NUR ---
Spoke with Michelle at [facility] [phone]. referral packet sent to f#[phone]. will follow up
--- NOTE | 2023-01-16 12:59 | NUR ---
follow up with Michelle at [facility] [place] . Michelle states they did not recieve referral fax. refaxed to F#[phone]
--- NOTE | 2023-01-16 13:45 | NUR ---
follow up with Doreen at [facility]. They cannot accept the patient as they are not contracted with [employer]. Doreen informed that this listing was retrieved from [employer] but Doreen insisted that they do not take her insurance.
== END 2023-01-14 18:00 | disposition home or self-care (01) | DRG 604 ==
LOC: SED 22:37 → SMU 12-29 02:50
PROVIDERS: ADMIT Family Medicine; ATTEND Family Medicine
PROC: 0HQKXZZ Repair Right Lower Leg Skin, External Approach (ICD-10-PCS; principal; 2022-12-29)
DX: S81.011A Laceration without foreign body, right knee, initial encounter (principal); J69.0 Pneumonitis due to inhalation of food and vomit; Z20.822 Contact with and (suspected) exposure to COVID-19; S81.012A Laceration without foreign body, left knee, initial encounter; D64.9 Anemia, unspecified; E78.5 Hyperlipidemia, unspecified; E03.8 Other specified hypothyroidism; R26.81 Unsteadiness on feet; W18.39XA Other fall on same level, initial encounter; Y93.89 Activity, other specified; Y92.89 Other specified places as the place of occurrence of the external cause; Y99.8 Other external cause status
CPT/HCPCS: 36415; 71045; 73564; 80048; 80061; 81003; 82150; 83037; 83690; 83735; 83880; 84100; 84439; 84443; 85025; 85610-TC; 85730-TC; 87081; 87086; 90715; 93005; 94760; 97110-GP; 97112-GP; 97116-GP; 97530-GP; 99285; J0696; J1650; J2001; J7060; Q0144